=== PATIENT | male | born 2000 | race Caucasian/White ===

== ENCOUNTER 2019-03-17 21:46 | Inpatient (IN) | payer BC, MEDICAID ==
[~2019-03-17] VITALS: Ht 180.3 cm; Wt 78.0 kg
[2019-03-17] MEDS ORDERED: TEMA15CA PO (22:04)
[2019-03-17] MEDS ORDERED: QUET100T PO (22:06)
[2019-03-17] MEDS ORDERED: PALI1.5T PO (22:06)
[2019-03-17] MEDS ORDERED: TRAZ-220 PO (22:06)
[2019-03-17] MEDS ORDERED: DSS100 PO (22:06)
[2019-03-17 22:09] LABS: BASOPHILS % (AUTO) 0.9 % (0.0-2.0); EOSINOPHILS % (AUTO) 1.7 % (1.0-6.0); HEMATOCRIT 42.1 % (41-53); HEMOGLOBIN 13.9 g/dL (13.5-17.5); LYMPHOCYTES # (AUTO) 1.8 K/uL (1.0-4.8); LYMPHOCYTES % (AUTO) 39.7 % (22.0-44.0); MEAN CORPUSCULAR HEMOGLOBIN 30.4 pg (26.0-34.0); MEAN CORPUSCULAR HGB CONC 33.1 G/dL (31.0-37.0); MEAN CORPUSCULAR VOLUME 92 fL (80-100); MONOCYTES # (AUTO) 0.6 K/uL (0.1-1.0); MONOCYTES % (AUTO) 13.5 % (2.0-9.0); NEUTROPHILS % (AUTO) 44.2 % (40.0-70.0); PLATELET COUNT (AUTO) 131 K/uL (150-450); RED BLOOD CELL COUNT(AUTO) 4.59 MIL/uL (4.50-5.90); RED CELL DISTRIBUTION WIDTH 13.4 % (11.5-14.5)
[2019-03-17 22:27] LABS: ALANINE AMINOTRANSFERASE 19 U/L (12-78); ALBUMIN 4.5 g/dL (3.4-5.0); ALKALINE PHOSPHATASE 71 U/L (46-116); ANION GAP 7 mmol/L (8-16); ASPARTATE AMINOTRANSFERASE 21 U/L (15-37); BILIRUBIN,TOTAL 0.5 mg/dL (0.1-1.0); CALCIUM, TOTAL 9.5 mg/dL (8.8-10.5); CARBON DIOXIDE 29 mmol/L (22-29); CHLORIDE 105 mmol/L (98-107); CREATININE 1.19 mg/dL (0.60-1.30); GLOMERULAR FILTR. RATE CALC > 60 mL/min (>60); GLUCOSE,RANDOM 89 mg/dL (70-110); POTASSIUM 4.1 mmol/L (3.5-5.1); SODIUM SERUM 141 mmol/L (136-145); TOTAL PROTEIN, SERUM 7.1 g/dL (6.4-8.2)
[2019-03-17 22:50] LABS: UREA NITROGEN, BLOOD 16 mg/dL (7-18)
[2019-03-18 01:55] VITALS: BP 106/69
[2019-03-18] MEDS: HALOPERIDOL 5 MG TABLET PO PRN ×2 (08:35→19:41)
[2019-03-18] MEDS: LORazepam 2 MG TABLET PO PRN ×2 (08:35→19:41)
[2019-03-18 08:56] LABS: CHOL/HDL RATIO 2.6 (4.2-7.3); CHOLESTEROL 116 mg/dL (131-200); HDL CHOLESTEROL 45 mg/dL (40-60); LDL CHOL (CALC.) 63 mg/dL (0-130); TRIGLYCERIDES 39 mg/dL (15-150)
[2019-03-18 09:10] VITALS: BP 110/61
[2019-03-18] MEDS ORDERED: LOPERAMIDE HCL 2 MG CAPSULE PO PRN (10:45)
[2019-03-18] MEDS ORDERED: ONDANSETRON HCL 4 MG TABLET PO PRN (10:45)
[2019-03-18] MEDS ORDERED: PETROLATUM,WHITE 28 GM JELLY TP PRN (10:45)
[2019-03-18] MEDS ORDERED: ACETAMINOPHEN 325 MG TABLET PO PRN (10:45)
[2019-03-18] MEDS ORDERED: MAGNESIUM HYDROXIDE SUSPENSION 30 ML UDCUP PO PRN (10:45)
[2019-03-18] MEDS ORDERED: IBUPROFEN 600 MG TABLET PO PRN (10:45)
[2019-03-18] MEDS ORDERED: MAG HYDROX/AL HYDROX/SIMETH ES 30 ML SUSPENSION UDCUP PO PRN (10:45)
[2019-03-18] MEDS ORDERED: ALBUTEROL SULFATE HFA 90 MCG/PUFF 8 GM INHALER IH PRN (10:45)
[2019-03-18] MEDS ORDERED: CloNIDine HCL 0.1 MG TABLET PO PRN (10:45)
[2019-03-18] MEDS ORDERED: OMEPRAZOLE 20 MG CAPSULE PO PRN (10:45)
[2019-03-18] MEDS ORDERED: BENZOCAINE/MENTHOL LOZENGE MM PRN (10:45)
[2019-03-18] MEDS ORDERED: BACITRACIN 28.4 GM OINTMENT TP PRN (10:45)
[2019-03-18] MEDS ORDERED: DOCUSATE SODIUM 100 MG CAPSULE PO PRN (10:45)
[2019-03-18 16:00] VITALS: BP 116/66
[2019-03-18] MEDS: ZOLPIDEM TARTRATE 10 MG TABLET PO PRN (21:45)
[2019-03-19 02:49] VITALS: BP 112/63
[2019-03-19 08:12] VITALS: BP 104/60
[2019-03-19] MEDS: DIVALPROEX SODIUM 500 MG DR TABLET PO SCH ×2 (08:14→17:10)
[2019-03-19] MEDS: RisperiDONE 1 MG TABLET PO SCH ×2 (08:14→17:11)
[2019-03-19] MEDS: LORazepam 2 MG TABLET PO PRN ×3 (12:47→21:14)
[2019-03-19] MEDS: HALOPERIDOL 5 MG TABLET PO PRN ×2 (12:47→16:54)
[2019-03-19 16:00] VITALS: BP 113/73
[2019-03-19] MEDS: NICOTINE 14 MG/24 HOUR PATCH TD SCH (19:05)
[2019-03-19] MEDS: ZOLPIDEM TARTRATE 10 MG TABLET PO PRN (20:59)
[2019-03-20 05:23] VITALS: BP 108/71
[2019-03-20 08:02] VITALS: BP 100/73
[2019-03-20] MEDS: LORazepam 2 MG TABLET PO PRN ×3 (08:12→20:29)
[2019-03-20] MEDS: RisperiDONE 1 MG TABLET PO SCH ×2 (08:12→16:12)
[2019-03-20] MEDS: DIVALPROEX SODIUM 500 MG DR TABLET PO SCH ×2 (08:12→16:12)
[2019-03-20] MEDS: NICOTINE 14 MG/24 HOUR PATCH TD SCH (08:12)
[2019-03-20 16:03] VITALS: BP 119/70
[2019-03-20] MEDS: HALOPERIDOL 5 MG TABLET PO PRN (16:12)
[2019-03-20] MEDS: ZOLPIDEM TARTRATE 10 MG TABLET PO PRN (20:29)
[2019-03-21 04:10] VITALS: BP 114/64
[2019-03-21] MEDS: LORazepam 2 MG TABLET PO PRN ×2 (08:11→14:56)
[2019-03-21] MEDS: HALOPERIDOL 5 MG TABLET PO PRN ×2 (08:11→16:39)
[2019-03-21] MEDS: DIVALPROEX SODIUM 500 MG DR TABLET PO SCH ×2 (08:12→16:39)
[2019-03-21] MEDS: RisperiDONE 1 MG TABLET PO SCH ×2 (08:12→16:39)
[2019-03-21] MEDS: NICOTINE 14 MG/24 HOUR PATCH TD SCH (09:00)
[2019-03-22] MEDS: RisperiDONE 1 MG TABLET PO SCH (08:26)
[2019-03-22] MEDS: NICOTINE 14 MG/24 HOUR PATCH TD SCH (08:26)
[2019-03-22] MEDS: DIVALPROEX SODIUM 500 MG DR TABLET PO SCH ×2 (08:26→16:14)
[2019-03-22] MEDS: HALOPERIDOL 5 MG TABLET PO PRN ×2 (14:21→18:30)
[2019-03-22] MEDS: LORazepam 2 MG TABLET PO PRN ×2 (14:21→18:30)
[2019-03-22 16:00] VITALS: BP 108/65
[2019-03-22] MEDS: RisperiDONE 2 MG TABLET PO SCH (16:14)
[2019-03-22] MEDS ORDERED: RisperiDONE 2 MG TABLET PO SCH (17:00)
[2019-03-22 17:06] VITALS: BP 108/65
[2019-03-22] MEDS: ZOLPIDEM TARTRATE 10 MG TABLET PO PRN (22:08)
[2019-03-23 03:26] VITALS: BP 114/69
[2019-03-23] MEDS: HALOPERIDOL 5 MG TABLET PO PRN (07:00)
[2019-03-23] MEDS: LORazepam 2 MG TABLET PO PRN ×3 (07:00→20:29)
[2019-03-23] MEDS: DIVALPROEX SODIUM 500 MG DR TABLET PO SCH ×2 (08:24→16:14)
[2019-03-23] MEDS: RisperiDONE 2 MG TABLET PO SCH ×2 (08:24→16:14)
[2019-03-23] MEDS: NICOTINE 14 MG/24 HOUR PATCH TD SCH (10:23)
[2019-03-23 16:28] VITALS: BP 114/62
[2019-03-23] MEDS: ZOLPIDEM TARTRATE 10 MG TABLET PO PRN (20:30)
[2019-03-24 06:21] VITALS: BP 124/73
[2019-03-24] MEDS: DIVALPROEX SODIUM 500 MG DR TABLET PO SCH ×2 (09:21→16:14)
[2019-03-24] MEDS: RisperiDONE 2 MG TABLET PO SCH ×2 (09:21→16:14)
[2019-03-24] MEDS: LORazepam 2 MG TABLET PO PRN ×3 (09:22→21:47)
[2019-03-24] MEDS: NICOTINE 14 MG/24 HOUR PATCH TD SCH (09:32)
[2019-03-24 10:21] VITALS: BP 107/64
[2019-03-24 16:00] VITALS: BP 111/67
[2019-03-24] MEDS: HALOPERIDOL 5 MG TABLET PO PRN (16:14)
[2019-03-24] MEDS: ZOLPIDEM TARTRATE 10 MG TABLET PO PRN (21:47)
[2019-03-25 06:11] VITALS: BP 114/77
[2019-03-25] MEDS: RisperiDONE 2 MG TABLET PO SCH ×2 (08:37→16:34)
[2019-03-25] MEDS: NICOTINE 14 MG/24 HOUR PATCH TD SCH (08:37)
[2019-03-25] MEDS: DIVALPROEX SODIUM 500 MG DR TABLET PO SCH ×2 (08:37→16:34)
[2019-03-25] MEDS: HALOPERIDOL 5 MG TABLET PO PRN (16:34)
[2019-03-25] MEDS: LORazepam 2 MG TABLET PO PRN (16:34)
[2019-03-25] MEDS ORDERED: TUBERCULIN, PURIFIED PROTEIN DERIVATIVE 5 TU/0.1 ML SYRINGE ID ONE (21:45)
[2019-03-26] MEDS: DIVALPROEX SODIUM 500 MG DR TABLET PO SCH ×2 (08:23→16:44)
[2019-03-26] MEDS: RisperiDONE 3 MG TABLET PO SCH ×2 (08:24→16:44)
[2019-03-26] MEDS: NICOTINE 14 MG/24 HOUR PATCH TD SCH (08:24)
[2019-03-26 16:00] VITALS: BP 110/68
[2019-03-26] MEDS ORDERED: NICOTINE 14 MG/24 HOUR PATCH TD ONE (18:45)
[2019-03-26] MEDS: ZOLPIDEM TARTRATE 10 MG TABLET PO PRN (20:05)
[2019-03-27 00:10] VITALS: BP 115/72
[2019-03-27] MEDS: HALOPERIDOL 5 MG TABLET PO PRN ×2 (00:31→20:07)
[2019-03-27] MEDS: LORazepam 2 MG TABLET PO PRN ×3 (00:31→20:07)
[2019-03-27] MEDS: RisperiDONE 3 MG TABLET PO SCH ×2 (08:00→16:05)
[2019-03-27] MEDS: DIVALPROEX SODIUM 500 MG DR TABLET PO SCH ×2 (08:00→16:05)
[2019-03-27] MEDS: NICOTINE 14 MG/24 HOUR PATCH TD SCH (08:00)
[2019-03-27 10:51] VITALS: BP 124/62
[2019-03-27 16:00] VITALS: BP 106/66
[2019-03-27] MEDS: ZOLPIDEM TARTRATE 10 MG TABLET PO PRN (20:20)
[2019-03-28] MEDS: HALOPERIDOL 5 MG TABLET PO PRN (00:02)
[2019-03-28] MEDS: LORazepam 2 MG TABLET PO PRN ×3 (00:02→16:10)
[2019-03-28 00:25] VITALS: BP 116/72
[2019-03-28] MEDS: DIVALPROEX SODIUM 500 MG DR TABLET PO SCH ×2 (09:15→17:01)
[2019-03-28] MEDS: NICOTINE 14 MG/24 HOUR PATCH TD SCH (09:15)
[2019-03-28] MEDS: RisperiDONE 3 MG TABLET PO SCH ×2 (09:15→17:01)
[2019-03-28 16:00] VITALS: BP 108/70
[2019-03-29 00:55] VITALS: BP 110/76
[2019-03-29] MEDS: NICOTINE 14 MG/24 HOUR PATCH TD SCH ×2 (08:36→09:00)
[2019-03-29] MEDS: RisperiDONE 3 MG TABLET PO SCH ×3 (08:36→16:06)
[2019-03-29] MEDS: DIVALPROEX SODIUM 500 MG DR TABLET PO SCH ×3 (08:36→16:06)
[2019-03-29 16:00] VITALS: BP 115/66
[2019-03-29] MEDS: HALOPERIDOL 5 MG TABLET PO PRN (16:06)
[2019-03-29] MEDS: LORazepam 2 MG TABLET PO PRN ×2 (16:06→20:23)
[2019-03-29] MEDS: ZOLPIDEM TARTRATE 10 MG TABLET PO PRN (20:23)
[2019-03-30 03:42] VITALS: BP 112/68
[2019-03-30 08:19] VITALS: BP 112/62
[2019-03-30] MEDS: LORazepam 2 MG TABLET PO PRN ×2 (09:02→16:25)
[2019-03-30] MEDS: RisperiDONE 3 MG TABLET PO SCH (09:02)
[2019-03-30] MEDS: DIVALPROEX SODIUM 500 MG DR TABLET PO SCH ×2 (09:02→16:25)
[2019-03-30] MEDS: HALOPERIDOL 5 MG TABLET PO PRN (09:02)
[2019-03-30] MEDS: NICOTINE 14 MG/24 HOUR PATCH TD SCH (09:02)
[2019-03-30 16:00] VITALS: BP 106/66
[2019-03-30] MEDS: RisperiDONE 4 MG TABLET PO SCH (16:25)
[2019-03-31 02:05] VITALS: BP 103/59
[2019-03-31 08:20] VITALS: BP 101/61
[2019-03-31] MEDS: LORazepam 2 MG TABLET PO PRN ×2 (08:35→16:27)
[2019-03-31] MEDS: NICOTINE 14 MG/24 HOUR PATCH TD SCH (08:35)
[2019-03-31] MEDS: DIVALPROEX SODIUM 500 MG DR TABLET PO SCH ×2 (08:35→16:27)
[2019-03-31] MEDS: RisperiDONE 4 MG TABLET PO SCH ×2 (08:36→16:27)
[2019-03-31 16:19] VITALS: BP 117/62
[2019-03-31] MEDS: ZOLPIDEM TARTRATE 10 MG TABLET PO PRN (22:15)
[2019-04-01 08:00] VITALS: BP 130/67
[2019-04-01] MEDS: NICOTINE 14 MG/24 HOUR PATCH TD SCH (08:35)
[2019-04-01] MEDS: DIVALPROEX SODIUM 500 MG DR TABLET PO SCH ×2 (08:36→17:01)
[2019-04-01] MEDS: RisperiDONE 4 MG TABLET PO SCH ×2 (08:36→17:01)
[2019-04-01] MEDS: LORazepam 2 MG TABLET PO PRN ×2 (08:36→17:01)
[2019-04-01 16:00] VITALS: BP 112/63
[2019-04-01] MEDS: HALOPERIDOL 5 MG TABLET PO PRN (17:01)
[2019-04-01] MEDS: ZOLPIDEM TARTRATE 10 MG TABLET PO PRN (21:33)
[2019-04-02 08:01] VITALS: BP 105/74
[2019-04-02] MEDS: RisperiDONE 4 MG TABLET PO SCH ×2 (08:15→16:57)
[2019-04-02] MEDS: LORazepam 2 MG TABLET PO PRN ×2 (08:15→14:50)
[2019-04-02] MEDS: DIVALPROEX SODIUM 500 MG DR TABLET PO SCH ×2 (08:15→16:57)
[2019-04-02] MEDS: NICOTINE 14 MG/24 HOUR PATCH TD SCH (08:17)
[2019-04-02 16:00] VITALS: BP 112/65
[2019-04-02] MEDS: HALOPERIDOL 5 MG TABLET PO PRN (16:22)
[2019-04-02] MEDS: ZOLPIDEM TARTRATE 10 MG TABLET PO PRN (20:40)
[2019-04-03 06:57] VITALS: BP 103/64
[2019-04-03] MEDS: DIVALPROEX SODIUM 500 MG DR TABLET PO SCH ×2 (10:05→16:52)
[2019-04-03] MEDS: LORazepam 2 MG TABLET PO PRN ×2 (10:05→16:52)
[2019-04-03] MEDS: NICOTINE 14 MG/24 HOUR PATCH TD SCH (10:05)
[2019-04-03] MEDS: RisperiDONE 4 MG TABLET PO SCH ×2 (10:05→16:52)
[2019-04-03 16:26] VITALS: BP 118/65
[2019-04-04 01:50] VITALS: BP 124/72
[2019-04-04] MEDS: ZOLPIDEM TARTRATE 10 MG TABLET PO PRN (01:53)
[2019-04-04] MEDS: NICOTINE 14 MG/24 HOUR PATCH TD SCH (09:00)
[2019-04-04] MEDS: RisperiDONE 4 MG TABLET PO SCH (09:12)
[2019-04-04] MEDS: DIVALPROEX SODIUM 500 MG DR TABLET PO SCH (09:12)
[2019-04-04] MEDS: LORazepam 2 MG TABLET PO PRN (09:12)
[2019-04-04] MEDS ORDERED: DIVA-78 PO (10:28)
[2019-04-04] MEDS ORDERED: RISP4 PO (10:28)
== END 2019-04-04 13:54 | disposition home or self-care (01) | DRG 885 ==
LOC: EMS 21:48 → B3A 23:00
PROVIDERS: ADMIT Psychiatry & Neurology Psychiatry; ATTEND Psychiatry & Neurology Psychiatry
DX: F25.1 Schizoaffective disorder, depressive type (principal); G47.00 Insomnia, unspecified; K59.00 Constipation, unspecified
CPT/HCPCS: G0480